=== PATIENT | male | born 1975 | race Caucasian/White ===

== ENCOUNTER 2016-10-05 16:46 | Emergency (ER) | payer OTHER ==
[~2016-10-05] VITALS: Ht 180.3 cm; Wt 98.4 kg
[~2016-10-05 16:46] MED LIST: CARAFATE1 GM PO; KEFLEX500 MG PO; LEVAQUIN500 MG PO; NOHOMEMEDS; NORCO 5/3251 TABLET PO; ULTRAM50 MG PO; UNABLEOBTAIN; ZANTAC150 MG PO; ZOFRAN ODT4 MG PO
[2016-10-05] MEDS ORDERED: FLEXERIL10 MG PO (18:51)
[2016-10-05 19:15] VITALS: BP 129/93
== END 2016-10-05 19:16 | disposition home or self-care (01) ==
LOC: EME 16:46
DX: S19.80XA Other specified injuries of unspecified part of neck, initial encounter (principal); M54.2 Cervicalgia; X58.XXXA Exposure to other specified factors, initial encounter; J45.909 Unspecified asthma, uncomplicated; F17.200 Nicotine dependence, unspecified, uncomplicated
CPT/HCPCS: 70360; 99281; 99284

== ENCOUNTER 2016-11-20 17:51 | Emergency (ER) | payer OTHER ==
[~2016-11-20] VITALS: Ht 180.3 cm; Wt 87.9 kg
[~2016-11-20 17:51] MED LIST changes: +FLEXERIL10 MG PO
[2016-11-20] MEDS ORDERED: VALACYCLOVIR500 MG PO (18:04)
[2016-11-20 18:41] VITALS: BP 132/98
== END 2016-11-20 18:41 | disposition home or self-care (01) ==
LOC: EME 17:51
PROC: 0HQ0XZZ Repair Scalp Skin, External Approach (ICD-10-PCS; principal; 2016-11-20)
DX: S01.01XA Laceration without foreign body of scalp, initial encounter (principal); W22.09XA Striking against other stationary object, initial encounter; Y92.89 Other specified places as the place of occurrence of the external cause
CPT/HCPCS: 99281; 99284

== ENCOUNTER 2017-03-14 01:51 | Emergency (ER) | payer OTHER ==
[~2017-03-14] VITALS: Ht 180.3 cm; Wt 88.0 kg
[~2017-03-14 01:51] MED LIST changes: +VALACYCLOVIR500 MG PO
[2017-03-14] MEDS ORDERED: KEFLEX500 MG PO (04:17)
[2017-03-14] MEDS ORDERED: PERCOCET 5/31 TABLET PO (04:17)
[2017-03-14 04:35] VITALS: BP 145/88
== END 2017-03-14 04:36 | disposition home or self-care (01) ==
LOC: EME 01:51
PROC: 0H9JXZZ Drainage of Left Upper Leg Skin, External Approach (ICD-10-PCS; principal; 2017-03-14)
DX: L02.416 Cutaneous abscess of left lower limb (principal)
CPT/HCPCS: 87070; 87075; 87076; 87205; 99281; 99284

== ENCOUNTER 2017-03-16 23:39 | Emergency (ER) | payer OTHER ==
[~2017-03-16] VITALS: Ht 180.3 cm; Wt 89.2 kg
[~2017-03-16 23:39] MED LIST changes: +PERCOCET 5/31 TABLET PO
[2017-03-16] MEDS ORDERED: FLEXERIL10 MG PO (23:53)
[2017-03-16] MEDS ORDERED: NAPROSYN500 MG PO (23:53)
[2017-03-17 00:24] VITALS: BP 129/68
== END 2017-03-17 00:37 | disposition home or self-care (01) ==
LOC: EME 23:39 → EXP 23:39
DX: L03.116 Cellulitis of left lower limb (principal); Z48.01 Encounter for change or removal of surgical wound dressing
CPT/HCPCS: 99281; 99283

== ENCOUNTER 2017-09-02 01:24 | Emergency (ER) | payer OTHER ==
[~2017-09-02] VITALS: Ht 180.3 cm; Wt 84.7 kg
[~2017-09-02 01:24] MED LIST changes: +NAPROSYN500 MG PO
[2017-09-02] MEDS ORDERED: KEFLEX500 MG PO (01:50)
[2017-09-02 02:07] VITALS: BP 137/97
== END 2017-09-02 02:07 | disposition home or self-care (01) ==
LOC: EME 01:24
DX: S60.862A Insect bite (nonvenomous) of left wrist, initial encounter (principal); L08.9 Local infection of the skin and subcutaneous tissue, unspecified; W57.XXXA Bitten or stung by nonvenomous insect and other nonvenomous arthropods, initial encounter; Y92.009 Unspecified place in unspecified non-institutional (private) residence as the place of occurrence of the external cause; F17.200 Nicotine dependence, unspecified, uncomplicated
CPT/HCPCS: 99281; 99283

== ENCOUNTER 2017-12-16 10:54 | Emergency (ER) | payer OTHER ==
[~2017-12-16] VITALS: Ht 180.3 cm; Wt 79.2 kg
[2017-12-16] MEDS ORDERED: ULTRAM50 MG PO (13:21)
[2017-12-16] MEDS ORDERED: DOXYCYCLINE HY100 MG PO (13:21)
[2017-12-16 13:44] VITALS: BP 148/99
== END 2017-12-16 13:54 | disposition home or self-care (01) ==
LOC: EME 10:54
DX: L73.9 Follicular disorder, unspecified (principal); F17.200 Nicotine dependence, unspecified, uncomplicated; Z88.8 Allergy status to other drugs, medicaments and biological substances
CPT/HCPCS: 99281; 99283

== ENCOUNTER 2018-01-13 03:41 | Emergency (ER) | payer OTHER ==
[~2018-01-13] VITALS: Ht 180.3 cm; Wt 76.3 kg
[~2018-01-13 03:41] MED LIST changes: +DOXYCYCLINE HY100 MG PO
[2018-01-13 06:01] VITALS: BP 130/85
== END 2018-01-13 06:19 | disposition home or self-care (01) ==
LOC: EME 03:41
DX: S00.83XA Contusion of other part of head, initial encounter (principal); Y00.XXXA Assault by blunt object, initial encounter; F17.200 Nicotine dependence, unspecified, uncomplicated; Z88.8 Allergy status to other drugs, medicaments and biological substances
CPT/HCPCS: 70450; 70486; 71045; 72125; 80048; 81003; 82150; 83690; 85025; 86850; 86900; 86901; 99281; 99283; G0480

== ENCOUNTER 2018-03-16 04:59 | Emergency (ER) | payer OTHER ==
[~2018-03-16] VITALS: Ht 180.3 cm; Wt 74.5 kg
[2018-03-16] MEDS ORDERED: MOTRIN800 MG PO (07:40)
[2018-03-16] MEDS ORDERED: FLEXERIL10 MG PO (07:40)
[2018-03-16] MEDS ORDERED: AMOXICILLIN500 MG PO (07:40)
[2018-03-16 07:59] VITALS: BP 136/87
== END 2018-03-16 08:00 | disposition home or self-care (01) ==
LOC: EME 04:59
DX: S29.012A Strain of muscle and tendon of back wall of thorax, initial encounter (principal); V49.60XA Unspecified car occupant injured in collision with unspecified motor vehicles in traffic accident, initial encounter; K02.9 Dental caries, unspecified; K05.10 Chronic gingivitis, plaque induced; F17.200 Nicotine dependence, unspecified, uncomplicated
CPT/HCPCS: 71046; 99281; 99283

== ENCOUNTER 2018-04-26 02:34 | Emergency (ER) | payer OTHER ==
[~2018-04-26] VITALS: Ht 180.3 cm; Wt 72.4 kg
[~2018-04-26 02:34] MED LIST changes: +AMOXICILLIN500 MG PO; +MOTRIN800 MG PO
[2018-04-26 02:36] VITALS: BP 142/90
[2018-04-26] MEDS ORDERED: AMOXICILLIN500 MG PO (04:48)
[2018-04-26] MEDS ORDERED: FLEXERIL10 MG PO (04:48)
[2018-04-26] MEDS ORDERED: NAPROSYN500 MG PO (04:48)
== END 2018-04-26 04:22 | disposition home or self-care (01) ==
LOC: EME 02:34
DX: S29.012A Strain of muscle and tendon of back wall of thorax, initial encounter (principal); S09.90XA Unspecified injury of head, initial encounter; V49.40XA Driver injured in collision with unspecified motor vehicles in traffic accident, initial encounter; Y92.410 Unspecified street and highway as the place of occurrence of the external cause; F17.200 Nicotine dependence, unspecified, uncomplicated
CPT/HCPCS: 70450; 73010; 99281; 99283

== ENCOUNTER 2018-04-26 04:20 | Emergency (ER) | payer OTHER ==
[~2018-04-26] VITALS: Ht 180.3 cm; Wt 72.2 kg
[2018-04-26] MEDS ORDERED: FLEXERIL10 MG PO (04:48)
[2018-04-26] MEDS ORDERED: NAPROSYN500 MG PO (04:48)
[2018-04-26] MEDS ORDERED: AMOXICILLIN500 MG PO (04:48)
[2018-04-26 05:01] VITALS: BP 126/90
== END 2018-04-26 05:02 | disposition home or self-care (01) ==
LOC: EME 04:20
DX: S29.012A Strain of muscle and tendon of back wall of thorax, initial encounter (principal); G44.309 Post-traumatic headache, unspecified, not intractable; K02.9 Dental caries, unspecified; V49.9XXA Car occupant (driver) (passenger) injured in unspecified traffic accident, initial encounter; Y92.410 Unspecified street and highway as the place of occurrence of the external cause; F17.200 Nicotine dependence, unspecified, uncomplicated
CPT/HCPCS: 99281; 99283

== ENCOUNTER 2018-05-11 13:17 | Emergency (ER) | payer OTHER ==
[~2018-05-11] VITALS: Ht 180.3 cm; Wt 74.1 kg
[2018-05-11] MEDS ORDERED: PEN-VEE K,VEET500 MG PO (16:21)
[2018-05-11] MEDS ORDERED: FLEXERIL10 MG PO (16:21)
[2018-05-11 17:18] VITALS: BP 140/96
== END 2018-05-11 17:21 | disposition home or self-care (01) ==
LOC: EME 13:17
PROC: 3E0234Z Introduction of Serum, Toxoid and Vaccine into Muscle, Percutaneous Approach (ICD-10-PCS; principal; 2018-05-11)
DX: S00.03XA Contusion of scalp, initial encounter (principal); K04.7 Periapical abscess without sinus; X99.0XXA Assault by sharp glass, initial encounter; Z23 Encounter for immunization; F17.200 Nicotine dependence, unspecified, uncomplicated; Z88.8 Allergy status to other drugs, medicaments and biological substances
CPT/HCPCS: 99281; 99284

== ENCOUNTER 2018-05-26 10:55 | Emergency (ER) | payer OTHER ==
[~2018-05-26] VITALS: Ht 180.3 cm; Wt 73.3 kg
[~2018-05-26 10:55] MED LIST changes: +PEN-VEE K,VEET500 MG PO
[2018-05-26 13:50] VITALS: BP 146/89
== END 2018-05-26 13:50 | disposition home or self-care (01) ==
LOC: EME 10:55
PROC: 0HQ0XZZ Repair Scalp Skin, External Approach (ICD-10-PCS; principal; 2018-05-26)
DX: S01.01XA Laceration without foreign body of scalp, initial encounter (principal); S00.83XA Contusion of other part of head, initial encounter; M25.519 Pain in unspecified shoulder; M54.2 Cervicalgia; Y00.XXXA Assault by blunt object, initial encounter; Y07.02 Wife, perpetrator of maltreatment and neglect; Z63.0 Problems in relationship with spouse or partner; F32.9 Major depressive disorder, single episode, unspecified; F17.200 Nicotine dependence, unspecified, uncomplicated
CPT/HCPCS: 70450; 70486; 90839; 99281; 99283